=== PATIENT | female | born 1950 | race Caucasian/White ===

== ENCOUNTER 2021-11-08 00:04 | Emergency (ER) | payer MEDICARE, OTHER ==
[~2021-11-08] VITALS: Ht 152.4 cm; Wt 70.3 kg
[2021-11-08] MEDS ORDERED: LEVOTHYROXINE50 MC1 PO (00:21)
[2021-11-08] MEDS ORDERED: LISINOPRIL20 MG PO (00:21)
[2021-11-09] MEDS ORDERED: HYDROCHLOROTHIA25 MG PO (00:57)
== END 2021-11-08 01:45 | disposition home or self-care (01) ==
LOC: ED 00:04
DX: I10 Essential (primary) hypertension (principal); E07.9 Disorder of thyroid, unspecified; Z79.899 Other long term (current) drug therapy
CPT/HCPCS: 36415; 80048; 85025; 96374; 96376; 99283-25; J0360

== ENCOUNTER 2021-11-08 23:49 | Emergency (ER) | payer MEDICARE, OTHER ==
[~2021-11-08] VITALS: Ht 152.4 cm; Wt 70.3 kg
[~2021-11-08 23:49] MED LIST: LEVOTHYROXINE50 MC1 PO; LISINOPRIL20 MG PO
--- OUTSIDE RECORDS SUMMARY | 2021-11-08 23:56 | XMS ---
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 [place] VISIT COUNT (12 MO.) 2 [facility] TOTAL 2 NOTE: Visits indicate total known visits. ED/UCC VISIT TRACKING (12 MO.) 11/08/2021 23:50 [facility] [place] TYPE: Emergency COMPLAINT: - BLOOD PRESSURE PROBLEM 11/08/2021 00:05 [facility] [place] TYPE: Emergency COMPLAINT: - BLOOD PRESSURE PROBLEM INPATIENT VISIT TRACKING (12 MO.) No inpatient visits to display in this time frame [id number]
[2021-11-09] MEDS ORDERED: HYDROCHLOROTHIA25 MG PO (00:57)
--- NOTE | 2021-11-10 11:43 | EKG ---
[facility] [address] [place] [address] Signed Normal sinus rhythm Normal ECG No previous ECGs available Confirmed by GUSTAVO FERNANDEZ MD ([id number]) on 11/10/2021 11:43:02 AM Electronically Signed By: GUSTAVO FERNANDEZ MD 11/10/21 1143 PATIENT NAME: BARBY PAZ Electrocardiogram DATE OF : 54 PHYSICIAN: GUSTAVO FERNANDEZ MD REPORT #: [id number] REPORT IS CONFIDENTIAL AND NOT TO BE RELEASED WITHOUT AUTHORIZATION
== END 2021-11-09 02:58 | disposition home or self-care (01) ==
LOC: ED 23:49
DX: I10 Essential (primary) hypertension (principal); E03.9 Hypothyroidism, unspecified; Z79.899 Other long term (current) drug therapy
CPT/HCPCS: 36415; 84484; 93005; 93010; 99283-25

== ENCOUNTER 2025-06-17 09:55 | Day surgery (SDC) | payer MEDICARE, OTHER ==
[~2025-06-17] VITALS: Ht 152.4 cm; Wt 69.0 kg
[~2025-06-17 09:55] MED LIST changes: +HYDROCHLOROTHIA25 MG PO; +IBLOOD GLUCOSE TEST STRIP 1 EA TEST VI PRN; +LACTATED RINGER'S 1,000 ML IV SCH; +LIDOCAINE HCL 1% 5 ML SDV INJ ONE
[2025-06-17 10:39] VITALS: BP 149/97
[2025-06-17] MEDS ORDERED: SEVOFLURANE 250 ML BTL INH ONE (10:45)
[2025-06-17] MEDS ORDERED: LIDOCAINE HCL 2% 5 ML SDV ONE (11:32)
[2025-06-17] MEDS ORDERED: fentaNYL citrate 100 MCG/2 ML VIAL ONE (11:32)
[2025-06-17] MEDS ORDERED: GLUCAGON,HUMAN RECOMBINANT 1 MG/ML VIAL ONE (11:47)
[2025-06-17] MEDS ORDERED: ACETAMINOPHEN 1,000 MG/100 ML VIAL ONE (12:36)
--- NOTE | 2025-06-17 13:44 | NUR ---
06/17/25 1344 Enedina Coello 1338: PT ARRIVES TO PACU NONAROUSAL WITH ORAL AIRWAY IN PLACE. REPORT RECEIVED FROM SISAL OPERATOR AND ASSISTANT STORE MANAGER SALES.
[2025-06-17 14:19] VITALS: BP 124/65
--- NOTE | 2025-06-17 14:25 | NUR ---
1418-PT BACK TO ROOM FROM PACU ON . RECEIVED REPORT FROM LINDA BERMEO. PT IS DROWSY. RESP EVEN AND UNLABORED. DENIES PAIN AND NAUSEA. WOUND VAC IN PLACE AND RUNNING. PT HAS WATER AND PUDDING AT BEDSIDE. NO OTHER NEEDS AT THIS TIME. CALL LIGHT WITHIN REACH.
[2025-06-17 15:17] VITALS: BP 117/71
--- NOTE | 2025-06-17 16:11 | NUR ---
1517-PT IS AWAKE LAYING IN BED. RESP EVEN AND UNLABORED. PT DENIES PAIN AND NAUSEA. PT DRINKING WATER. WOUND VAC IN PLACE AND RUNNING. PT READY TO GO HOME. 1520-PARTNER IN ROOM. WOUND VAC EDUCATION GIVEN. ALL QUESTIONS ANSWERED. PT WILL GET DRESSED WITH THE HELP OF HER PARTNER. CALL LIGHT WITHIN REACH.
--- NOTE | 2025-06-17 16:13 | NUR ---
1530-WENT OVER DISCHARGE INSTRUCTIONS WITH PT AND HER PARTNER. WENT OVER POSTOP MEDICATIONS. ALL QUESTIONS ANWERED. PT GIVEN APPT TIME TO COME IN TO DAY SURGERY FOR WOUND VAC DRESSING CHANGE ON 06/19/25 AT 0900 AND 06/22/25 AT 1500. 1535-PT AMBULATES TO RESTROOM. 1540-PT AMBULATES TO WHEELCHAIR AND RIDE PROVIDED TO FRONT OF HOSPITAL WHERE PARTNER WAS WAITING WITH THE CAR.
== END 2025-06-17 15:43 | disposition home or self-care (01) ==
LOC: DS 09:55
PROVIDERS: ATTEND Surgery
PROC: 0H96X0Z Drainage of Back Skin with Drainage Device, External Approach (ICD-10-PCS; principal; 2025-06-17 12:15)
DX: S30.0XXA Contusion of lower back and pelvis, initial encounter (principal); X58.XXXA Exposure to other specified factors, initial encounter; E11.9 Type 2 diabetes mellitus without complications; Z88.8 Allergy status to other drugs, medicaments and biological substances; Z79.899 Other long term (current) drug therapy
CPT/HCPCS: 00300; J0131; J1610; J2003; J2405; J2704; J3010; J7121

== ENCOUNTER 2025-06-18 19:20 | Emergency (ER) | payer MEDICARE, OTHER ==
[~2025-06-18] VITALS: Ht 152.4 cm; Wt 69.2 kg
--- OUTSIDE RECORDS SUMMARY | ~2025-06-18 | XMS | Continuity of Care Document ---
Demographics + + + | Address | [address] [place] [address] | | | [place] [address] | + + + | Preferred Language | Unknown | + + + | Marital Status | Never | + + + | Oriental Orthodox Affiliation | Unknown | + + + | Race | Unknown | + + + | Ethnic Group | Not or | + + + Author + + + | Author | [facility] | + + + | Organization | [facility] | + + + | Address | [address] | | | [place] [address] | + + + | Phone | | + + + Care Team Providers + + + + | [facility] Name | Role | Phone | + + + + Unavailable | Unavailable | + + + + Unavailable | Unavailable | + + + + Allergies No information. Encounters No information. Functional Status No information. Immunizations No information. Medications + + + + | date | description | facility | + + + + | (no date) | HYDROCHLOROTHIAZIDE | [facility] | | | | [facility] | + + + + | (no date) | LISINOPRIL | [facility] | | | | [facility] | + + + + | (no date) | Levothyroxine Sodium | [facility] | | | | [facility] | + + + + Problems No information. Procedures No information. Results/Labs +--------+--------+ +---------+--------+---------+ | test | date | facility | value | unit | notes | +--------+--------+ +---------+--------+---------+ + + | Result panel 1 | + + + + + +--------+ + + | WBC # Bld | 2025-06-16 | | 6.26 | (missing) | (missing) | | Auto | 10:11:08 | [facility] | | | | + + + +--------+ + + + + | Result panel 2 | + + + + + +--------+ + + | Lymphocytes | 2025-06-16 | | 32.7 | (missing) | (missing) | | NFr Bld | 10:11:08 | [facility] | | | | | Auto [facility] | | | | + + + +--------+ + + + + | Result panel 3 | + + + + + +-------+ + + | Monocytes | 2025-06-16 | | 7.0 | (missing) | (missing) | | NFr Bld Auto | 10:11:08 | [facility] | | | | + + + +-------+ + + + + | Result panel 4 | + + + + + +-------+ + + | Eosinophil | 2025-06-16 | | 1.0 | (missing) | (missing) | | NFr Bld Auto | 10:11:08 | [facility] | | | | + + + +-------+ + + + + | Result panel 5 | + + + + + +-------+ + + | Basophils | 2025-06-16 | | 0.8 | (missing) | (missing) | | NFr Bld Auto | 10:11:08 | [facility] | | | | + + + +-------+ + + + + | Result panel 6 | + + + + + +-------+---------+ + | Glucose | 2025-06-16 | | 172 | mg/dL | (missing) | | SerPl-mCnc | 10:11:08 | [facility] | | | | + + + +-------+---------+ + + + | Result panel 7 | + + + + + +------+---------+ + | BUN | 2025-06-16 | | 20 | mg/dL | (missing) | | SerPl-mCnc | 10:11:08 | [facility] | | | | + + + +------+---------+ + + + | Result panel 8 | + + + + + +--------+---------+ + | Creat | 2025-06-16 | | 1.00 | mg/dL | (missing) | | SerPl-mCnc | 10:11:08 | [facility] | | | | + + + +--------+---------+ + + + | Result panel 9 | + + + + + +------+ + + | eGFRcr | 2025-06-16 | | 59 | (missing) | (missing) | | SerPlBld | 10:11:08 | [facility] | | | | | CKD-EPI 2020 | [facility] | | | | + + + +------+ + + + + | Result panel 10 | + + + + + +---------+ + + | BUN/Creat | 2025-06-16 | | 20.00 | (missing) | (missing) | | SerPl | 10:11:08 | [facility] | | | | + + + +---------+ + + + + | Result panel 11 | + + + + + +-------+ + + | Sodium | 2025-06-16 | | 137 | (missing) | (missing) | | SerPl-sCnc | 10:11:08 | [facility] | | | | + + + +-------+ + + + + | Result panel 12 | + + + + + +--------+ + + | RBC # Bld | 2025-06-16 | | 4.99 | (missing) | (missing) | | Auto | 10:11:08 | [facility] | | | | + + + +--------+ + + + + | Result panel 13 | + + + + + +-------+ + + | Potassium | 2025-06-16 | | 4.4 | (missing) | (missing) | | SerPl-sCnc | 10:11:08 | [facility] | | | | + + + +-------+ + + + + | Result panel 14 | + + + + + +-------+ + + | Chloride | 2025-06-16 | | 101 | (missing) | (missing) | | SerPl-sCnc | 10:11:08 | [facility] | | | | + + + +-------+ + + + + | Result panel 15 | + + + + + +------+ + + | CO2 | 2025-06-16 | | 28 | (missing) | (missing) | | SerPl-sCnc | 10::08 | [facility] | | | | + + + +------+ + + + + | Result panel 16 | + + + + + +--------+ + + | Anion Gap | 2025-06-16 | | 12.4 | (missing) | (missing) | | SerPl | 10::08 | [facility] | | | | | Calculated.4 | [facility] | [facility] | | | | + + + +--------+ + + + + | Result panel 17 | + + + + + +-------+---------+ + | Calcium | 2025-06-16 | | 9.4 | mg/dL | (missing) | | SerPl-mCnc | 10:11:08 | [facility] | | | | + + + +-------+---------+ + + + | Result panel 18 | + + + + + +-------+ + + | Prot | 2025-06-16 | | 7.5 | (missing) | (missing) | | SerPl-mCnc | 10:11:08 | [facility] | | | | + + + +-------+ + + + + | Result panel 19 | + + + + + +-------+ + + | Albumin | 2025-06-16 | | 3.9 | (missing) | (missing) | | SerPl-mCnc | 10:11:08 | [facility] | | | | + + + +-------+ + + + + | Result panel 20 | + + + + + +-------+ + + | Globulin | 2025-06-16 | | 3.6 | (missing) | (missing) | | Ser-mCnc | 10:11:08 | [facility] | | | | + + + +-------+ + + + + | Result panel 21 | + + + + + +--------+ + + | | 2025-06-16 | | 1.08 | (missing) | (missing) | | Albumin/Glob | 10:11:08 | [facility] | | | | | SerPl | [facility] | | | | + + + +--------+ + + + + | Result panel 22 | + + + + + +-------+---------+ + | Bilirub | 2025-06-16 | | 0.5 | mg/dL | (missing) | | SerPl-mCnc | 10:11:08 | [facility] | | | | + + + +-------+---------+ + + + | Result panel 23 | + + + + + +--------+ + + | Hgb | 2025-06-16 | | 14.8 | (missing) | (missing) | | Bld-mCnc | 10:11:08 | [facility] | | | | + + + +--------+ + + + + | Result panel 24 | + + + + + +------+ + + | AST | 2025-06-16 | | 12 | (missing) | (missing) | | SerPl-cCnc | 10:11:08 | [facility] | | | | + + + +------+ + + + + | Result panel 25 | + + + + + +------+ + + | ALT | 2025-06-16 | | 23 | (missing) | (missing) | | SerPl-cCnc | 10:11:08 | [facility] | | | | + + + +------+ + + + + | Result panel 26 | + + + + + +------+ + + | ALP | 2025-06-16 | | 93 | (missing) | (missing) | | SerPl-cCnc | 10:11:08 | [facility] | | | | + + + +------+ + + + + | Result panel 27 | + + + + + +--------+ + + | Hct VFr.DF | 2025-06-16 | | 46.0 | (missing) | (missing) | | Bld Auto | 10:11:08 | [facility] | | | | + + + +--------+ + + + + | Result panel 28 | + + + + + +--------+ + + | RBC Auto | 2025-06-16 | | 92.2 | (missing) | (missing) | | | ::08 | [facility] | | | | + + + +--------+ + + + + | Result panel 29 | + + + + + +--------+ + + | MCH RBC Qn | 2025-06-16 | | 29.7 | (missing) | (missing) | | Auto | 10:11:08 | [facility] | | | | + + + +--------+ + + + + | Result panel 30 | + + + + + +--------+ + + | MCHC RBC | 2025-06-16 | | 32.2 | (missing) | (missing) | | Auto-EntMCnc | 10:11:08 | [facility] | | | | + + + +--------+ + + + + | Result panel 31 | + + + + + +-------+ + + | Platelet # | 2025-06-16 | | 306 | (missing) | (missing) | | Bld Auto | 10:11:08 | [facility] | | | | + + + +-------+ + + + + | Result panel 32 | + + + + + +--------+ + + | Neutrophils | 2025-06-16 | | 57.9 | (missing) | (missing) | | NFr Bld | 10:11:08 | [facility] | | | | | Auto | [facility] | | | | + + + +--------+ + + Social History + + + + | date | description | facility | + + + + | (no date) | Unknown if ever smoked | [facility] | | | | [facility] | + + + + Vital Signs + + + +---------+ | date | measurement | value | units | + + + +---------+ | 2025-06-16 00:00 | BMI | 29.7 | kg/m2 | + + + +---------+ | 2025-06-16 00:00 | height_metric | 152.4 | cm | + + + +---------+ | 2025-06-16 00:00 | height_standard | 60 | in | + + + +---------+ | 2025-06-16 00:00 | weight_metric | 69 | kg | + + + +---------+ | 2025-06-16 00:00 | weight_standard | 152.118 | lb | + + + +---------+ | 2025-06-17 00:00 | BP_diastolic | 71 | mmHg | + + + +---------+ | 2025-06-17 00:00 | BP_systolic | 117 | mmHg | + + + +---------+ | 2025-06-17 00:00 | heart_rate | 82 | /min | + + + +---------+ | 2025-06-17 00:00 | o2_saturation | 97 | % | + + + +---------+ | 2025-06-17 00:00 | respiration_rate | 16 | /min | + + + +---------+ | 2025-06-17 00:00 | | 97 | F | | | temperature_standar | | | | | d | | | + + + +---------+"
[~2025-06-18 19:20] MED LIST changes: -IBLOOD GLUCOSE TEST STRIP 1 EA TEST VI PRN; -LACTATED RINGER'S 1,000 ML IV SCH; -LIDOCAINE HCL 1% 5 ML SDV INJ ONE
[2025-06-18 20:59] VITALS: BP 138/87
== END 2025-06-18 21:00 | disposition home or self-care (01) ==
LOC: ED 19:20
DX: Z48.817 Encounter for surgical aftercare following surgery on the skin and subcutaneous tissue (principal)
CPT/HCPCS: 99282